=== PATIENT | female | born 1960 | race African-American/Black ===

== ENCOUNTER 2016-06-02 15:12 | Emergency (ER) | payer BC ==
[~2016-06-02] VITALS: Ht 167.6 cm; Wt 97.2 kg
[~2016-06-02 15:12] MED LIST: Z.0.NO CURRENT MEDS
[2016-06-02 15:21] VITALS: BP 142/103; PULSE 63; RESP 20; TEMP 98.9; O2SAT 96
[2016-06-02] MEDS ORDERED: MELO7.5T4 PO (15:38)
[2016-06-02] MEDS ORDERED: PERC5TAB12 PO (15:38)
[2016-06-02] MEDS ORDERED: PLAQ200T PO (15:38)
[2016-06-02] MEDS ORDERED: ESTR0.5T PO (15:38)
--- NOTE | 2016-06-02 16:13 | PD ---
HPI Chief Complaint: Musculoskeletal Complaint Time Seen by Provider: 15:48 Travel History International Travel<30 days: No Contact w/Intl Traveler<30days: No Traveled to known affect area: No History of Present Illness HPI 56-year-old female presents to the emergency room for evaluation of left shoulder pain after trip and fall just prior to arrival. Patient fell forward landing with her left forearm on the floor which was slippery and caused her arm to fly up over her head. She denies hitting her head or any other injuries. States the impact caused significant left shoulder pain localized to the humeral head. Took 1 Percocet into [facility] prior to coming in but states they haven't seemed to improve her pain. Pain is worsened with any range of motion of the shoulder. No significant pain with palpation. Denies paresthesias. PFSH Past Medical History Autoimmune Disease: Yes (Lupus) Immunizations Current: Yes Tetanus Vaccination: < 5 Years Influenza Vaccination: No ?: Not Menopausal: Yes Past Surgical History Appendectomy: Yes Hysterectomy: Yes (2008) Social History Alcohol Use: Yes (Occ.) Tobacco Use: No Substance Use: No Allergies-Medications (Allergen,Severity, Reaction): Coded Allergies: Sulfa (Verified Adverse Reaction, Severe, Generalized pain, 06/02/16) Reported Meds & Prescriptions Reported Meds & Active Scripts Active Reported Plaquenil (Hydroxychloroquine Sulfate) 200 Mg Tab 400 Mg PO DAILY Take with food Meloxicam 7.5 Mg Tab 7.5 Mg PO DAILY PRN Estradiol 0.5 Mg Tab 0.5 Mg PO DAILY Percocet (Oxycodone-Acetaminophen) 5-325 mg Tab 1 Tab PO BID Review of Systems Except as stated in HPI: all other systems reviewed are Neg Physical Exam Narrative GENERAL: Well-nourished, well-developed female in no acute distress. Afebrile. Ambulatory. SKIN: Warm and dry. No erythema or ecchymosis. HEAD: Normocephalic. EYES: No scleral icterus. No injection or drainage. NECK: Supple, trachea midline. No JVD or lymphadenopathy. EXTREMITY: Left shoulder not significantly tender to palpation. Very limited range of motion of the shoulder secondary to pain. No joint swelling/injury. 2 + radial pulse. Radial, ulnar, and median nerves intact. Data Data Last Documented VS Vital Signs Date Time Temp Pulse Resp B/P Pulse Ox O2 Delivery O2 Flow Rate FiO2 06/02/16 15:21 98.9 63 20 142/103 96 Orders Shoulder, Complete (>2vws) (06/02/16 ) [facility] Medical Decision Making Medical Screen Exam Complete: Yes Emergency Medical Condition: Yes Medical Record Reviewed: Yes Differential Diagnosis Rotator cuff injury versus fracture versus sprain versus strain Narrative Course 56-year-old female presents to the emergency room for evaluation of left shoulder pain after trip and fall just prior to arrival. Patient landed with most of her weight on her left upper extremity and then hyperextended her shoulder. She denies any other injuries. Left upper extremity is neurovascularly intact with 2+ radial pulse and radial, ulnar, and median nerves intact. No obvious edema, erythema, or ecchymosis. X-rays negative for acute abnormality. Patient was told to take ibuprofen and home prescription for Percocet for pain and follow up with a primary care physician for outpatient MRI. She was discharged with sling but told not to wear it for more than a few days as this may cause adhesive capsulitis. She understands and agrees to this plan. Diagnosis Primary Impression: Pain of left shoulder joint on movement Referrals: Primary Care Physician Patient Instructions: Exercises for Internal and External Shoulder Rotation (ED ), General Instructions Additional Instructions: Rest and drink plenty of fluids. Use splint for 2-3 days. Then maintain range of motion of the arm. Keeping your arm still for too long will worsen symptoms. Take ibuprofen with food as directed, as needed for pain. Apply ice to the affected area for 20 minutes at a time, as needed for pain and swelling. Follow-up with a primary care physician if symptoms persist for outpatient MRI. Return to the emergency room for worsening symptoms. Med/Other Pt SpecificInfo: Prescription(s) given Disposition: 01 DISCHARGE HOME Condition: Stable Renee Richardson Jun 02, 2016 16:12
--- NOTE | 2016-06-02 16:18 | RADHPO ---
EXAM DATE/TIME: 06/02/2016 15:43 [facility] COMPARISON: CHEST SINGLE AP, July 02, 2012, 18:26. INDICATIONS : Left shoulder pain after falling today MEDICAL HISTORY : None. SURGICAL HISTORY : None. ENCOUNTER: Initial ACUITY: 1 day PAIN SCORE: 6/10 LOCATION: Left shoulder FINDINGS: Multiple view examination of the left shoulder demonstrates no evidence of fracture or dislocation. The glenohumeral and acromioclavicular joints are maintained. There is normal range of motion betwee n internal and external rotation. Bony mineralization is normal. CONCLUSION: No acute disease. Janki Patel MD on June 02, 2016 at 16:17 Board Certified Radiologist. This report was verified electronically.
== END 2016-06-02 16:52 | disposition home or self-care (01) ==
LOC: PHEFT 15:12
DX: M25.512 Pain in left shoulder (principal); W01.0XXA Fall on same level from slipping, tripping and stumbling without subsequent striking against object, initial encounter
CPT/HCPCS: 73030; 99283